=== PATIENT | female | born 1985 | race Caucasian/White ===

== ENCOUNTER 2021-11-24 16:09 | Inpatient (IN) | payer OTHER ==
[2021-11-24 17:28] VITALS: BMI 46.0
[2021-11-24] MEDS ORDERED: NICOTINE 10 MG CARTRIDGE (INHALER) IH PRN (18:08)
[2021-11-24] MEDS ORDERED: ACETAMINOPHEN 325 MG TABLET (FP) PO PRN (18:08)
[2021-11-24] MEDS ORDERED: MAG HYDROX/AL HYDROX/SIMETH 30 ML UNIT-DOSE CUP PO PRN (18:08)
[2021-11-24] MEDS ORDERED: MAGNESIUM CITRATE 300 ML BOTTLE PO PRN (18:08)
[2021-11-24] MEDS ORDERED: guaiFENesin 200 MG/10 ML 10 ML UNIT-DOSE CUPS PO PRN (18:08)
[2021-11-24] MEDS ORDERED: MAGNESIUM HYDROX 2400MG/30ML ORAL SUSPENSION 30 ML CUP PO PRN (18:08)
[2021-11-24] MEDS ORDERED: P-EPHED 60MG/TRIPROLIDI 2.5MG TABLET PO PRN (18:08)
[2021-11-24] MEDS ORDERED: LOPERAMIDE HCL 2 MG CAPSULE PO PRN (18:08)
[2021-11-24] MEDS: NICOTINE 7 MG/24 HOURS TOPICAL PATCH TD SCH (19:21)
[2021-11-24] MEDS: hydrOXYzine PAMOATE 25 MG CAPSULE (FP) PO SCH (21:10)
[2021-11-24] MEDS: THIAMINE HCL 100 MG TABLET (FP) PO SCH (21:10)
[2021-11-24] MEDS: BUPRENORPHINE/NALOXONE 8 MG/2 MG FILM PACKET SL SCH (21:11)
[2021-11-24] MEDS ORDERED: MELATONIN 5 MG TABLETS PO SCH (22:00)
[2021-11-25] MEDS: hydrOXYzine PAMOATE 25 MG CAPSULE (FP) PO SCH ×5 (06:20→21:19)
[2021-11-25] MEDS: BUPRENORPHINE/NALOXONE 8 MG/2 MG FILM PACKET SL SCH ×2 (09:38→21:19)
[2021-11-25] MEDS: PRENATAL VITAMINS W/ FOLIC ACID TABLET (FP) PO SCH (09:39)
[2021-11-25] MEDS: NICOTINE 7 MG/24 HOURS TOPICAL PATCH TD SCH (09:39)
[2021-11-25 10:19] LABS: HEMATOCRIT 43.3 % (32.4-45.2); HEMOGLOBIN 13.7 GM/dL (10.7-15.3); MCH 24.6 pg (25.7-33.7); MCHC 31.5 g/dl (32.0-36.0); MEAN PLT VOLUME 8.9 fl (7.5-11.1); PLATELET COUNT 320 10^3/uL (134-434); RBC 5.55 M/mm3 (3.60-5.2); RDW 15.4 % (11.6-15.6); WHITE BLOOD COUNT 5.6 K/mm3 (4.0-10.0)
[2021-11-25 10:24] LABS: URINE APPEARANCE CLEAR; URINE BILIRUBIN NEGATIVE (NEGATIVE); URINE COLOR YELLOW; URINE GLUCOSE (UA) NEGATIVE (NEGATIVE); URINE KETONE NEGATIVE (NEGATIVE); URINE LEUK ESTERASE NEGATIVE (NEGATIVE); URINE NITRITE NEGATIVE (NEGATIVE); URINE PROTEIN NEGATIVE (NEGATIVE); URINE UROBILINOGEN 0.2 mg/dL (0.2-1.0)
[2021-11-25 10:27] LABS: ALBUMIN 3.3 g/dl (3.4-5.0); BLOOD UREA NITROGEN 11.8 mg/dL (7-18); CREATININE 0.6 mg/dL (0.55-1.3)
[2021-11-25 10:28] LABS: BILIRUBIN,TOTAL 0.4 mg/dL (0.2-1); CALCIUM 9.2 mg/dL (8.5-10.1); TOT PROT 7.4 g/dl (6.4-8.2)
[2021-11-25] MEDS ORDERED: BISACODYL 5 MG TABLET.DR (FP) PO ONE (11:00)
[2021-11-25] MEDS ORDERED: NICOTINE POLACRILEX 2 MG GUM BUC PRN (11:10)
[2021-11-25] MEDS ORDERED: GABAPENTIN 400 MG CAPSULE PO ONE (11:24)
[2021-11-25] MEDS: FLUoxetine HCL 20 MG CAPSULE PO SCH (11:36)
[2021-11-25] MEDS: BISACODYL 5 MG TABLET.DR (FP) PO PRN (11:36)
[2021-11-25] MEDS ORDERED: FLU VACC QS2021-22(6MOS UP)/PF 60 MCG/0.5 ML SYRINGE IM ONE (12:00)
[2021-11-25] MEDS: GABAPENTIN 400 MG CAPSULE PO SCH ×2 (13:29→21:18)
[2021-11-25] MEDS ORDERED: DOCUSATE SODIUM 100 MG CAPSULE (FP) PO SCH ×2 (14:00→22:00)
[2021-11-25] MEDS: NICOTINE POLACRILEX 2 MG GUM BUC PRN (19:40)
[2021-11-25] MEDS: QUEtiapine FUMARATE 50 MG TABLET PO SCH (21:18)
[2021-11-25] MEDS: THIAMINE HCL 100 MG TABLET (FP) PO SCH (21:19)
[2021-11-26] MEDS: GABAPENTIN 400 MG CAPSULE PO SCH ×3 (06:23→21:01)
[2021-11-26] MEDS: hydrOXYzine PAMOATE 25 MG CAPSULE (FP) PO SCH ×5 (06:23→21:01)
[2021-11-26] MEDS: PRENATAL VITAMINS W/ FOLIC ACID TABLET (FP) PO SCH (09:49)
[2021-11-26] MEDS: BUPRENORPHINE/NALOXONE 8 MG/2 MG FILM PACKET SL SCH ×2 (09:49→21:02)
[2021-11-26] MEDS: FLUoxetine HCL 20 MG CAPSULE PO SCH (09:49)
[2021-11-26] MEDS: BISACODYL 5 MG TABLET.DR (FP) PO PRN (13:55)
[2021-11-26] MEDS: NICOTINE POLACRILEX 2 MG GUM BUC PRN (13:56)
[2021-11-26] MEDS: COLLOIDAL OATMEAL 1 BAR EACH TP PRN (19:45)
[2021-11-26] MEDS: MINERAL OIL/PETROLAT/WATER TOPICAL CREAM 113 GM JAR TP PRN (19:46)
[2021-11-26] MEDS: QUEtiapine FUMARATE 50 MG TABLET PO SCH (21:01)
[2021-11-26] MEDS: THIAMINE HCL 100 MG TABLET (FP) PO SCH (21:01)
[2021-11-27] MEDS: GABAPENTIN 400 MG CAPSULE PO SCH ×3 (06:00→22:02)
[2021-11-27] MEDS: hydrOXYzine PAMOATE 25 MG CAPSULE (FP) PO SCH ×5 (06:00→22:02)
[2021-11-27] MEDS: BUPRENORPHINE/NALOXONE 8 MG/2 MG FILM PACKET SL SCH ×2 (09:59→22:05)
[2021-11-27] MEDS: PRENATAL VITAMINS W/ FOLIC ACID TABLET (FP) PO SCH (10:01)
[2021-11-27] MEDS: FLUoxetine HCL 20 MG CAPSULE PO SCH (10:01)
[2021-11-27] MEDS: NICOTINE 10 MG CARTRIDGE (INHALER) IH PRN (17:32)
[2021-11-27] MEDS: MINERAL OIL/PETROLAT/WATER TOPICAL CREAM 113 GM JAR TP PRN (19:20)
[2021-11-27] MEDS: THIAMINE HCL 100 MG TABLET (FP) PO SCH (22:02)
[2021-11-27] MEDS: QUEtiapine FUMARATE 50 MG TABLET PO SCH (22:02)
[2021-11-27] MEDS: SENNOSIDES 8.6MG TABLET (FP) PO PRN (22:02)
[2021-11-28] MEDS: GABAPENTIN 400 MG CAPSULE PO SCH ×3 (06:09→21:55)
[2021-11-28] MEDS: hydrOXYzine PAMOATE 25 MG CAPSULE (FP) PO SCH ×5 (06:10→21:56)
[2021-11-28] MEDS: NICOTINE 10 MG CARTRIDGE (INHALER) IH PRN (07:50)
[2021-11-28] MEDS: PRENATAL VITAMINS W/ FOLIC ACID TABLET (FP) PO SCH (10:20)
[2021-11-28] MEDS: FLUoxetine HCL 20 MG CAPSULE PO SCH (10:20)
[2021-11-28] MEDS: MINERAL OIL/PETROLAT/WATER TOPICAL CREAM 113 GM JAR TP PRN (10:20)
[2021-11-28] MEDS: BUPRENORPHINE/NALOXONE 8 MG/2 MG FILM PACKET SL SCH ×2 (10:20→21:59)
[2021-11-28] MEDS: IBUPROFEN 400 MG TABLET (FP) PO PRN (10:21)
[2021-11-28] MEDS: COLLOIDAL OATMEAL 1 BAR EACH TP PRN (19:57)
[2021-11-28] MEDS: QUEtiapine FUMARATE 50 MG TABLET PO SCH (21:55)
[2021-11-28] MEDS: THIAMINE HCL 100 MG TABLET (FP) PO SCH (21:55)
[2021-11-28] MEDS: BISACODYL 5 MG TABLET.DR (FP) PO PRN (21:57)
[2021-11-28] MEDS: SENNOSIDES 8.6MG TABLET (FP) PO PRN (21:57)
[2021-11-29] MEDS: GABAPENTIN 400 MG CAPSULE PO SCH (07:01)
[2021-11-29] MEDS: hydrOXYzine PAMOATE 25 MG CAPSULE (FP) PO SCH ×2 (07:01→09:58)
[2021-11-29 08:33] VITALS: BP 121/75; PULSE 66; TEMP 98.1
[2021-11-29] MEDS: SENNOSIDES 8.6MG TABLET (FP) PO PRN (09:58)
[2021-11-29] MEDS: BISACODYL 5 MG TABLET.DR (FP) PO PRN (09:58)
[2021-11-29] MEDS: FLUoxetine HCL 20 MG CAPSULE PO SCH (09:58)
[2021-11-29] MEDS: PRENATAL VITAMINS W/ FOLIC ACID TABLET (FP) PO SCH (09:58)
[2021-11-29] MEDS: BUPRENORPHINE/NALOXONE 8 MG/2 MG FILM PACKET SL SCH (10:01)
[2021-11-29] MEDS: IBUPROFEN 400 MG TABLET (FP) PO PRN (12:45)
== END 2021-11-29 14:05 | disposition home or self-care (01) | DRG 772 ==
LOC: YASAS 16:09 → Y3W 17:39 → Y5N 11-27 16:13
PROVIDERS: ADMIT Allergy & Immunology; ATTEND Allergy & Immunology
PROC: HZ42ZZZ Group Counseling for Substance Abuse Treatment, Cognitive-Behavioral (ICD-10-PCS; principal; 2021-11-24)
DX: F11.20 Opioid dependence, uncomplicated (principal); F14.20 Cocaine dependence, uncomplicated; F13.20 Sedative, hypnotic or anxiolytic dependence, uncomplicated; F17.210 Nicotine dependence, cigarettes, uncomplicated; F33.1 Major depressive disorder, recurrent, moderate; F19.280 Other psychoactive substance dependence with psychoactive substance-induced anxiety disorder; F19.282 Other psychoactive substance dependence with psychoactive substance-induced sleep disorder; F41.9 Anxiety disorder, unspecified; F90.9 Attention-deficit hyperactivity disorder, unspecified type; K59.03 Drug induced constipation; Z62.810 Personal history of physical and sexual abuse in childhood; E66.01 Morbid (severe) obesity due to excess calories; Z68.42 Body mass index [BMI] 45.0-49.9, adult; Z91.410 Personal history of adult physical and sexual abuse; Z56.0 Unemployment, unspecified
CPT/HCPCS: 36415; 71046-TC-FY; 80053; 81003; 81025; 85027; 86780; 86803; 87522; 90686; C9803; G0008; U0003; U0005

== ENCOUNTER 2022-12-23 11:44 | Inpatient (IN) | payer OTHER ==
[2022-12-23 12:48] VITALS: BMI 43.9
[2022-12-23] MEDS ORDERED: MAGNESIUM HYDROX 2400MG/30ML ORAL SUSPENSION 30 ML CUP PO PRN (14:05)
[2022-12-23] MEDS ORDERED: ONDANSETRON *ODT* 4 MG TABLET SL PRN (14:05)
[2022-12-23] MEDS ORDERED: DICYCLOMINE HCL 10 MG CAPSULE PO PRN (14:05)
[2022-12-23] MEDS ORDERED: NICOTINE POLACRILEX 4 MG GUM BUC PRN (14:05)
[2022-12-23] MEDS ORDERED: LOPERAMIDE HCL 2 MG CAPSULE PO PRN (14:05)
[2022-12-23] MEDS ORDERED: NALOXONE HCL (KLOXXADO) 8 MG SPRAY NS PRN (14:05)
[2022-12-23] MEDS ORDERED: BENZOCAINE/MENTHOL (CHLORASEPTIC ) LOZENGE MM PRN (14:05)
[2022-12-23] MEDS ORDERED: NICOTINE 10 MG CARTRIDGE (INHALER) IH PRN (14:05)
[2022-12-23] MEDS ORDERED: POLYETHYLENE GLYCOL (HEALTHYLAX) 3350 17 GM PACKET PO PRN (14:05)
[2022-12-23] MEDS ORDERED: ACETAMINOPHEN 325 MG TABLET (FP) PO PRN (14:05)
[2022-12-23] MEDS ORDERED: IBUPROFEN 400 MG TABLET (FP) PO PRN (14:05)
[2022-12-23] MEDS ORDERED: MAG HYDROX/AL HYDROX/SIMETH 30 ML UNIT-DOSE CUP PO PRN (14:05)
[2022-12-23] MEDS ORDERED: hydrOXYzine PAMOATE 25 MG CAPSULE (FP) PO PRN (14:05)
[2022-12-23] MEDS ORDERED: BISMUTH SUBSALICYLATE 524 MG/30 ML PO PRN (14:05)
[2022-12-23] MEDS ORDERED: ALBUTEROL SO4 HFA INHALER IH PRN (14:16)
[2022-12-23] MEDS ORDERED: methaDONE HCL 10 MG TABLET (FOR DETOX USE ONLY) PO ONE (15:00)
[2022-12-23] MEDS ORDERED: methaDONE HCL 10 MG TABLET (FOR DETOX USE ONLY) ONE (15:42)
[2022-12-23] MEDS: diazePAM 5 MG TABLET PO SCH ×2 (17:01→23:05)
[2022-12-23] MEDS: diazePAM 5 MG TABLET PO PRN (20:25)
[2022-12-23] MEDS: IBUPROFEN 600 MG TABLET (FP) PO PRN (20:27)
[2022-12-23] MEDS: MELATONIN 5 MG TABLETS PO SCH (22:49)
[2022-12-23] MEDS: THIAMINE HCL 100 MG TABLET (FP) PO SCH (22:49)
[2022-12-23] MEDS: METHOCARBAMOL 500 MG TABLET PO PRN (22:52)
[2022-12-23] MEDS: cloNIDine HCL 0.1 MG TABLET PO PRN (22:52)
[2022-12-24] MEDS: diazePAM 5 MG TABLET PO PRN ×4 (02:48→21:29)
[2022-12-24] MEDS: diazePAM 5 MG TABLET PO SCH ×4 (06:39→22:32)
[2022-12-24] MEDS: IBUPROFEN 600 MG TABLET (FP) PO PRN ×2 (07:40→15:58)
[2022-12-24] MEDS: PRENATAL VITAMINS W/ FOLIC ACID TABLET (FP) PO SCH (10:32)
[2022-12-24] MEDS: NICOTINE 21 MG/24 HOURS TOPICAL PATCH TD SCH (10:34)
[2022-12-24] MEDS: METHOCARBAMOL 500 MG TABLET PO PRN ×2 (10:36→21:29)
[2022-12-24] MEDS: ACETAMINOPHEN 325 MG TABLET (FP) PO PRN ×2 (10:36→21:30)
[2022-12-24 10:49] LABS: HEMATOCRIT 36.6 % (32.4-45.2); HEMOGLOBIN 12.1 GM/dL (10.7-15.3); MCH 26.9 pg (25.7-33.7); MCHC 33.2 g/dl (32.0-36.0); MEAN PLT VOLUME 9.1 fl (7.5-11.1); PLATELET COUNT 308 10^3/uL (134-434); RBC 4.51 M/mm3 (3.60-5.2); RDW 14.1 % (11.6-15.6); WHITE BLOOD COUNT 9.7 K/mm3 (4.0-10.0)
[2022-12-24 10:53] LABS: CALCIUM 8.4 mg/dL (8.5-10.1)
[2022-12-24 10:57] LABS: CREATININE 0.4 mg/dL (0.55-1.3)
[2022-12-24 10:59] LABS: BILIRUBIN,TOTAL 0.2 mg/dL (0.2-1); TOT PROT 6.8 g/dl (6.4-8.2)
[2022-12-24] MEDS: cloNIDine HCL 0.1 MG TABLET PO PRN (17:36)
[2022-12-24] MEDS: THIAMINE HCL 100 MG TABLET (FP) PO SCH (21:31)
[2022-12-24] MEDS: MELATONIN 5 MG TABLETS PO SCH (21:32)
[2022-12-25] MEDS: diazePAM 5 MG TABLET PO PRN ×2 (02:59→08:50)
[2022-12-25] MEDS: ACETAMINOPHEN 325 MG TABLET (FP) PO PRN ×3 (03:30→14:02)
[2022-12-25] MEDS: diazePAM 5 MG TABLET PO SCH ×2 (05:10→13:14)
[2022-12-25] MEDS: cloNIDine HCL 0.1 MG TABLET PO PRN (05:11)
[2022-12-25] MEDS: METHOCARBAMOL 500 MG TABLET PO PRN ×2 (05:12→13:13)
[2022-12-25] MEDS: IBUPROFEN 600 MG TABLET (FP) PO PRN (05:12)
[2022-12-25 09:06] VITALS: BP 149/89; PULSE 76; RESP 18; TEMP 98
[2022-12-25] MEDS ORDERED: methaDONE HCL 10 MG TABLET (FOR DETOX USE ONLY) PO ONE (10:00)
[2022-12-25] MEDS: PRENATAL VITAMINS W/ FOLIC ACID TABLET (FP) PO SCH (10:21)
[2022-12-25] MEDS: NICOTINE 21 MG/24 HOURS TOPICAL PATCH TD SCH (10:21)
[2022-12-26] MEDS ORDERED: diazePAM 5 MG TABLET PO SCH (06:00)
[2022-12-27] MEDS ORDERED: diazePAM 5 MG TABLET PO ONE (06:00)
[2022-12-27] MEDS ORDERED: methaDONE HCL 10 MG TABLET (FOR DETOX USE ONLY) PO ONE (10:00)
== END 2022-12-25 14:17 | disposition left against medical advice (07) | DRG 770 ==
LOC: YASAS 11:44 → Y3N 14:30
PROVIDERS: ADMIT Allergy & Immunology; ATTEND Surgery
PROC: HZ2ZZZZ Detoxification Services for Substance Abuse Treatment (ICD-10-PCS; principal; 2022-12-23)
DX: F11.23 Opioid dependence with withdrawal (principal); F13.230 Sedative, hypnotic or anxiolytic dependence with withdrawal, uncomplicated; F17.210 Nicotine dependence, cigarettes, uncomplicated; F42.4 Excoriation (skin-picking) disorder; J45.909 Unspecified asthma, uncomplicated; R76.11 Nonspecific reaction to tuberculin skin test without active tuberculosis; E66.01 Morbid (severe) obesity due to excess calories; Z68.41 Body mass index [BMI] 40.0-44.9, adult
CPT/HCPCS: 36415; 80053; 81025; 85027; 86780; C9803-CS; U0003; U0005

== ENCOUNTER 2023-03-16 10:46 | Inpatient (IN) | payer OTHER ==
[2023-03-16 11:24] VITALS: BMI 38.7
[2023-03-16] MEDS ORDERED: MAG HYDROX/AL HYDROX/SIMETH 30 ML UNIT-DOSE CUP PO PRN (16:22)
[2023-03-16] MEDS ORDERED: BENZOCAINE/MENTHOL (CHLORASEPTIC ) LOZENGE MM PRN (16:22)
[2023-03-16] MEDS ORDERED: ACETAMINOPHEN 325 MG TABLET (FP) PO PRN (16:22)
[2023-03-16] MEDS ORDERED: BISMUTH SUBSALICYLATE 524 MG/30 ML PO PRN (16:22)
[2023-03-16] MEDS ORDERED: NALOXONE HCL (KLOXXADO) 8 MG SPRAY NS PRN (16:22)
[2023-03-16] MEDS ORDERED: POLYETHYLENE GLYCOL (HEALTHYLAX) 3350 17 GM PACKET PO PRN (16:22)
[2023-03-16] MEDS ORDERED: methaDONE HCL 10 MG TABLET (FOR DETOX USE ONLY) PO ONE (16:22)
[2023-03-16] MEDS ORDERED: IBUPROFEN 400 MG TABLET (FP) PO PRN (16:22)
[2023-03-16] MEDS ORDERED: LOPERAMIDE HCL 2 MG CAPSULE PO PRN (16:22)
[2023-03-16] MEDS ORDERED: NICOTINE 10 MG CARTRIDGE (INHALER) IH PRN (16:22)
[2023-03-16] MEDS ORDERED: MAGNESIUM HYDROX 2400MG/30ML ORAL SUSPENSION 30 ML CUP PO PRN (16:22)
[2023-03-16] MEDS ORDERED: BENZONATATE 200 MG CAPSULE PO PRN (16:22)
[2023-03-16] MEDS ORDERED: guaiFENesin 600 MG TABLET.ER (FP) PO PRN (16:22)
[2023-03-16] MEDS ORDERED: NALOXONE HCL 0.4 MG/ML VIAL IM PRN (16:22)
[2023-03-16] MEDS ORDERED: DICYCLOMINE HCL 10 MG CAPSULE PO PRN (16:22)
[2023-03-16] MEDS ORDERED: IBUPROFEN 600 MG TABLET (FP) PO PRN (16:22)
[2023-03-16] MEDS ORDERED: NICOTINE POLACRILEX 2 MG GUM BUC PRN (16:31)
[2023-03-16] MEDS ORDERED: methaDONE HCL 10 MG TABLET (FOR DETOX USE ONLY) ONE (16:53)
[2023-03-16] MEDS: diazePAM 5 MG TABLET PO SCH ×2 (17:29→22:14)
[2023-03-16] MEDS: MELATONIN 5 MG TABLETS PO SCH (22:14)
[2023-03-16] MEDS: THIAMINE HCL 100 MG TABLET (FP) PO SCH (22:14)
[2023-03-16] MEDS: cloNIDine HCL 0.1 MG TABLET PO PRN (22:16)
[2023-03-16] MEDS: METHOCARBAMOL 500 MG TABLET PO PRN (22:16)
[2023-03-17] MEDS: diazePAM 5 MG TABLET PO SCH ×4 (05:27→22:36)
[2023-03-17] MEDS: cloNIDine HCL 0.1 MG TABLET PO PRN (05:29)
[2023-03-17] MEDS: METHOCARBAMOL 500 MG TABLET PO PRN ×2 (05:29→22:36)
[2023-03-17] MEDS: PRENATAL VITAMINS W/ FOLIC ACID TABLET (FP) PO SCH (10:16)
[2023-03-17 11:04] LABS: HEMATOCRIT 35.5 % (32.4-45.2); MCH 26.6 pg (25.7-33.7); MCHC 33.7 g/dl (32.0-36.0); MEAN CELL VOLUME 79.1 fl (80-96); MEAN PLT VOLUME 8.9 fl (7.5-11.1); PLATELET COUNT 273 10^3/uL (134-434); RBC 4.49 M/mm3 (3.60-5.2); RDW 15.1 % (11.6-15.6)
[2023-03-17 11:07] LABS: POTASSIUM 4.3 mmol/L (3.5-5.1)
[2023-03-17 11:14] LABS: CALCIUM 8.7 mg/dL (8.5-10.1)
[2023-03-17 11:15] LABS: BLOOD UREA NITROGEN 15.8 mg/dL (7-18)
[2023-03-17 11:18] LABS: CREATININE 0.4 mg/dL (0.55-1.3)
[2023-03-17 11:19] LABS: BILIRUBIN,TOTAL 0.7 mg/dL (0.2-1); TOT PROT 6.6 g/dl (6.4-8.2)
[2023-03-17] MEDS: diazePAM 5 MG TABLET PO PRN (20:10)
[2023-03-17] MEDS: THIAMINE HCL 100 MG TABLET (FP) PO SCH (22:35)
[2023-03-17] MEDS: MELATONIN 5 MG TABLETS PO SCH (22:35)
[2023-03-18] MEDS: diazePAM 5 MG TABLET PO SCH ×3 (05:24→22:17)
[2023-03-18] MEDS: METHOCARBAMOL 500 MG TABLET PO PRN ×2 (09:30→17:35)
[2023-03-18] MEDS: PRENATAL VITAMINS W/ FOLIC ACID TABLET (FP) PO SCH (09:30)
[2023-03-18] MEDS: diazePAM 5 MG TABLET PO PRN ×2 (09:31→17:35)
[2023-03-18] MEDS ORDERED: methaDONE HCL 10 MG TABLET (FOR DETOX USE ONLY) PO ONE (10:00)
[2023-03-18] MEDS: cloNIDine HCL 0.1 MG TABLET PO PRN (14:02)
[2023-03-18] MEDS: MELATONIN 5 MG TABLETS PO SCH (22:17)
[2023-03-18] MEDS: THIAMINE HCL 100 MG TABLET (FP) PO SCH (22:17)
[2023-03-19] MEDS ORDERED: diazePAM 5 MG TABLET PO SCH (06:00)
[2023-03-19] MEDS: PRENATAL VITAMINS W/ FOLIC ACID TABLET (FP) PO SCH (09:05)
[2023-03-19] MEDS: diazePAM 5 MG TABLET PO PRN ×2 (09:06→13:35)
[2023-03-19 14:33] VITALS: BP 133/85; PULSE 78; RESP 16; TEMP 98.1
[2023-03-20] MEDS ORDERED: diazePAM 5 MG TABLET PO ONE (06:00)
[2023-03-20] MEDS ORDERED: methaDONE HCL 10 MG TABLET (FOR DETOX USE ONLY) PO ONE (10:00)
== END 2023-03-19 14:32 | disposition left against medical advice (07) | DRG 770 ==
LOC: YASAS 10:46 → Y3N 16:55
PROVIDERS: ADMIT Allergy & Immunology; ATTEND Surgery
PROC: HZ2ZZZZ Detoxification Services for Substance Abuse Treatment (ICD-10-PCS; principal; 2023-03-16)
DX: F11.23 Opioid dependence with withdrawal (principal); F10.230 Alcohol dependence with withdrawal, uncomplicated; F13.230 Sedative, hypnotic or anxiolytic dependence with withdrawal, uncomplicated; F14.10 Cocaine abuse, uncomplicated; F12.20 Cannabis dependence, uncomplicated; F17.210 Nicotine dependence, cigarettes, uncomplicated; F33.1 Major depressive disorder, recurrent, moderate; B18.2 Chronic viral hepatitis C; E66.01 Morbid (severe) obesity due to excess calories; Z68.41 Body mass index [BMI] 40.0-44.9, adult; Z86.69 Personal history of other diseases of the nervous system and sense organs
CPT/HCPCS: 36415; 80053; 81025; 85027; 86780; 87811; C9803-CS; U0003; U0005

== ENCOUNTER 2024-09-10 13:16 | Inpatient (IN) | payer BC ==
[2024-09-10 14:27] VITALS: BMI 34.0
[2024-09-10] MEDS ORDERED: ACETAMINOPHEN 325 MG TABLET (FP) PO PRN (14:44)
[2024-09-10] MEDS ORDERED: BISMUTH SUBSALICYLATE 262 MG/15 ML BTL PO PRN (14:44)
[2024-09-10] MEDS ORDERED: NALOXONE (NARCAN) HCL 4 MG/0.1 ML SPRAY NS PRN (14:44)
[2024-09-10] MEDS ORDERED: DICYCLOMINE HCL 10 MG CAPSULE PO PRN (14:44)
[2024-09-10] MEDS ORDERED: MAGNESIUM HYDROX 2400MG/30ML ORAL SUSPENSION 30 ML CUP PO PRN (14:44)
[2024-09-10] MEDS ORDERED: POLYETHYLENE GLYCOL (HEALTHYLAX) 3350 17 GM PACKET PO PRN (14:44)
[2024-09-10] MEDS ORDERED: IBUPROFEN 400 MG TABLET (FP) PO PRN (14:44)
[2024-09-10] MEDS ORDERED: BENZONATATE 200 MG CAPSULE PO PRN (14:44)
[2024-09-10] MEDS ORDERED: guaiFENesin 600 MG TABLET.ER (FP) PO PRN (14:44)
[2024-09-10] MEDS ORDERED: MAG HYDROX/AL HYDROX/SIMETH 30 ML UNIT-DOSE CUP PO PRN (14:44)
[2024-09-10] MEDS ORDERED: IBUPROFEN 600 MG TABLET (FP) PO PRN (14:44)
[2024-09-10] MEDS ORDERED: LOPERAMIDE HCL 2 MG CAPSULE PO PRN (14:44)
[2024-09-10] MEDS ORDERED: BENZOCAINE/MENTHOL (CHLORASEPTIC ) LOZENGE MM PRN (14:44)
[2024-09-10] MEDS: PRENATAL VITAMINS W/ FOLIC ACID TABLET (FP) PO SCH (15:39)
[2024-09-10] MEDS: methaDONE HCL 10 MG TABLET PO ONE (15:39)
[2024-09-10] MEDS: NICOTINE 14 MG/24 HOURS TOPICAL PATCH TD SCH (15:42)
[2024-09-10] MEDS: diazePAM 5 MG TABLET PO PRN (17:57)
[2024-09-10] MEDS: methaDONE HCL 10 MG TABLET PO PRN (17:58)
[2024-09-10] MEDS: cloNIDine HCL 0.1 MG TABLET PO SCH (17:58)
[2024-09-10] MEDS: THIAMINE 100 MG TABLET PO SCH (22:31)
[2024-09-10] MEDS: MELATONIN 5 MG TABLETS PO SCH (22:31)
[2024-09-10] MEDS: diazePAM 5 MG TABLET PO SCH (22:32)
[2024-09-11] MEDS: methaDONE 40 MG, methaDONE 10 MG PO ONE (10:45)
[2024-09-11 11:16] LABS: HEMATOCRIT 41.3 % (32.4-45.2); HEMOGLOBIN 13.5 GM/dL (10.7-15.3); MCH 26.1 pg (25.7-33.7); MCHC 32.6 g/dl (32.0-36.0); MEAN CELL VOLUME 80.2 fl (80-96); MEAN PLT VOLUME 9.1 fl (7.5-11.1); PLATELET COUNT 250 10^3/uL (134-434); RBC 5.16 M/mm3 (3.60-5.2); RDW 14.3 % (11.6-15.6); WHITE BLOOD COUNT 5.9 K/mm3 (4.0-10.0)
[2024-09-11 11:50] LABS: POTASSIUM 3.6 mmol/L (3.5-5.1)
[2024-09-11 12:07] LABS: ALBUMIN 3.3 g/dl (3.4-5.0)
[2024-09-11 12:10] LABS: CREATININE 0.4 mg/dL (0.55-1.3)
[2024-09-11 12:12] LABS: BILIRUBIN,TOTAL 0.4 mg/dL (0.2-1)
[2024-09-11 12:14] LABS: TOT PROT 7.1 g/dl (6.4-8.2)
[2024-09-12] MEDS ORDERED: cloNIDine HCL 0.1 MG TABLET PO PRN
[2024-09-12] MEDS: diazePAM 5 MG TABLET PO SCH (05:33)
[2024-09-12] MEDS: methaDONE 40 MG, methaDONE 20 MG PO ONE (09:19)
[2024-09-12] MEDS: METHOCARBAMOL 500 MG TABLET PO PRN (21:19)
[2024-09-13] MEDS: diazePAM 5 MG TABLET PO SCH (05:49)
[2024-09-13] MEDS: hydrOXYzine PAMOATE 25 MG CAPSULE (FP) PO PRN (08:18)
[2024-09-13] MEDS: ONDANSETRON *ODT* 4 MG TABLET SL PRN (08:18)
[2024-09-13] MEDS: methaDONE 40 MG, methaDONE 30 MG PO ONE (09:22)
[2024-09-14] MEDS: diazePAM 5 MG TABLET PO ONE (05:59)
[2024-09-14] MEDS: methaDONE HCL 40 MG DISPERSABLE TABLET PO ONE (09:21)
[2024-09-14 10:17] VITALS: BP 107/61; PULSE 86; RESP 18; TEMP 97.6
[2024-09-14] MEDS: NALOXONE (NYS OPIOID OVERDOSE PROGRAM) 4 MG/0.1 ML SPRAY NS PRN (13:36)
[2024-09-15] MEDS ORDERED: methaDONE 80 MG, methaDONE 10 MG PO ONE (10:00)
== END 2024-09-14 12:26 | disposition home or self-care (01) | DRG 773 ==
LOC: YASAS 13:16 → Y6N 15:09
PROVIDERS: ADMIT Allergy & Immunology; ATTEND Surgery
PROC: HZ2ZZZZ Detoxification Services for Substance Abuse Treatment (ICD-10-PCS; principal; 2024-09-10)
DX: F11.23 Opioid dependence with withdrawal (principal); F10.230 Alcohol dependence with withdrawal, uncomplicated; F14.20 Cocaine dependence, uncomplicated; F17.210 Nicotine dependence, cigarettes, uncomplicated; F33.1 Major depressive disorder, recurrent, moderate; F41.9 Anxiety disorder, unspecified; F90.9 Attention-deficit hyperactivity disorder, unspecified type; G47.00 Insomnia, unspecified; J45.909 Unspecified asthma, uncomplicated; Z86.11 Personal history of tuberculosis; Z86.69 Personal history of other diseases of the nervous system and sense organs
CPT/HCPCS: 36415; 80053; 80305; 80307; 81025; 85027; 86780; 93005; 93010; Q0162

== ENCOUNTER 2024-10-25 18:00 | Inpatient (IN) | payer BC ==
[2024-10-25 18:26] VITALS: BMI 35.9
[2024-10-25] MEDS ORDERED: methaDONE HCL 10 MG TABLET (FOR DETOX USE ONLY) PO PRN (18:36)
[2024-10-25] MEDS ORDERED: ONDANSETRON *ODT* 4 MG TABLET SL PRN (18:38)
[2024-10-25] MEDS ORDERED: BENZOCAINE/MENTHOL (CHLORASEPTIC ) LOZENGE MM PRN (18:38)
[2024-10-25] MEDS ORDERED: BENZONATATE 200 MG CAPSULE PO PRN (18:38)
[2024-10-25] MEDS ORDERED: MAG HYDROX/AL HYDROX/SIMETH 30 ML UNIT-DOSE CUP PO PRN (18:38)
[2024-10-25] MEDS ORDERED: NALOXONE (NARCAN) HCL 4 MG/0.1 ML SPRAY NS PRN (18:38)
[2024-10-25] MEDS ORDERED: BISMUTH SUBSALICYLATE 524 MG/30 ML PO PRN (18:38)
[2024-10-25] MEDS ORDERED: guaiFENesin 600 MG TABLET.ER (FP) PO PRN (18:38)
[2024-10-25] MEDS ORDERED: POLYETHYLENE GLYCOL (HEALTHYLAX) 3350 17 GM PACKET PO PRN (18:38)
[2024-10-25] MEDS ORDERED: ACETAMINOPHEN 325 MG TABLET (FP) PO PRN (18:38)
[2024-10-25] MEDS ORDERED: NICOTINE POLACRILEX 2 MG LOZENGE BC PRN (18:38)
[2024-10-25] MEDS ORDERED: P-EPHED 60MG/TRIPROLIDI 2.5MG TABLET PO PRN (18:38)
[2024-10-25] MEDS ORDERED: DICYCLOMINE HCL 10 MG CAPSULE PO PRN (18:38)
[2024-10-25] MEDS ORDERED: IBUPROFEN 400 MG TABLET (FP) PO PRN (18:38)
[2024-10-25] MEDS ORDERED: LOPERAMIDE HCL 2 MG CAPSULE PO PRN (18:38)
[2024-10-25] MEDS ORDERED: MAGNESIUM HYDROX 2400MG/30ML ORAL SUSPENSION 30 ML CUP PO PRN (18:38)
[2024-10-25] MEDS ORDERED: diazePAM 5 MG TABLET ONE (19:58)
[2024-10-25] MEDS ORDERED: methaDONE HCL 10 MG TABLET (FOR DETOX USE ONLY) ONE (19:59)
[2024-10-25] MEDS: diazePAM 5 MG TABLET PO ONE (20:02)
[2024-10-25] MEDS: methaDONE HCL 10 MG TABLET (FOR DETOX USE ONLY) PO ONE (20:02)
[2024-10-25] MEDS: QUEtiapine FUMARATE 25 MG TABLET PO PRN (22:24)
[2024-10-25] MEDS: hydrOXYzine PAMOATE 25 MG CAPSULE (FP) PO PRN (22:24)
[2024-10-25] MEDS: METHOCARBAMOL 500 MG TABLET PO PRN (22:25)
[2024-10-25] MEDS: THIAMINE 100 MG TABLET PO SCH (22:26)
[2024-10-25] MEDS: MELATONIN 5 MG TABLETS PO SCH (22:26)
[2024-10-25] MEDS: diazePAM 5 MG TABLET PO SCH (22:27)
[2024-10-26] MEDS: NICOTINE POLACRILEX 2 MG GUM BUC PRN (08:36)
[2024-10-26] MEDS: diazePAM 5 MG TABLET PO PRN (09:32)
[2024-10-26] MEDS: PRENATAL VITAMINS W/ FOLIC ACID TABLET (FP) PO SCH (09:37)
[2024-10-26] MEDS: CIPROFLOXACIN HCL 0.3% OPHTH 2.5ML BOTTLE OS SCH (14:16)
[2024-10-26] MEDS: cloNIDine HCL 0.1 MG TABLET PO PRN (19:49)
[2024-10-26] MEDS: QUEtiapine FUMARATE 100 MG TABLET (FP) PO SCH (22:17)
[2024-10-27] MEDS: diazePAM 5 MG TABLET PO SCH (05:54)
[2024-10-27] MEDS: methaDONE 40 MG, methaDONE 10 MG PO ONE (09:54)
[2024-10-27] MEDS ORDERED: methaDONE HCL 10 MG TABLET (FOR DETOX USE ONLY) PO ONE (10:00)
[2024-10-27] MEDS ORDERED: methaDONE HCL 10 MG TABLET PO ONE (10:00)
[2024-10-28] MEDS: diazePAM 5 MG TABLET PO SCH (06:13)
[2024-10-28 09:26] VITALS: RESP 18
[2024-10-28 10:00] LABS: BASO % 0.5 % (0-2.0); EOS % 3.9 % (0-4.5); HEMATOCRIT 36.6 % (32.4-45.2); HEMOGLOBIN 12.5 GM/dL (10.7-15.3); LYMPH % 47.1 % (8-40); MCH 27.1 pg (25.7-33.7); MCHC 34.1 g/dl (32.0-36.0); MEAN CELL VOLUME 79.5 fl (80-96); MEAN PLT VOLUME 8.2 fl (7.5-11.1); MONO % 10.9 % (3.8-10.2); NEUT % 37.6 % (42.8-82.8); PLATELET COUNT 315 10^3/uL (134-434); RDW 13.9 % (11.6-15.6)
[2024-10-28 10:06] LABS: POTASSIUM 4.2 mmol/L (3.5-5.1)
[2024-10-28] MEDS: methaDONE 40 MG, methaDONE 20 MG PO ONE (10:08)
[2024-10-28 10:10] LABS: ALBUMIN 2.8 g/dl (3.4-5.0); BLOOD UREA NITROGEN 15.8 mg/dL (7-18); CALCIUM 8.7 mg/dL (8.5-10.1)
[2024-10-28 10:13] LABS: CREATININE 0.4 mg/dL (0.55-1.3)
[2024-10-28 10:15] LABS: BILIRUBIN,TOTAL 0.2 mg/dL (0.2-1); TOT PROT 6.8 g/dl (6.4-8.2)
[2024-10-28] MEDS: IBUPROFEN 600 MG TABLET (FP) PO PRN (11:49)
[2024-10-28 13:13] VITALS: BP 131/66; PULSE 88; TEMP 96.9
[2024-10-28] MEDS ORDERED: NALOXONE (NYS OPIOID OVERDOSE PROGRAM) 4 MG/0.1 ML SPRAY NS SCH (14:15)
[2024-10-29] MEDS ORDERED: diazePAM 5 MG TABLET PO ONE (06:00)
[2024-10-29] MEDS ORDERED: methaDONE HCL 10 MG TABLET (FOR DETOX USE ONLY) PO ONE (10:00)
[2024-10-29] MEDS ORDERED: methaDONE 40 MG, methaDONE 30 MG PO ONE (10:00)
[2024-10-29] MEDS ORDERED: methaDONE HCL 10 MG TABLET PO ONE (10:00)
[2024-10-30] MEDS ORDERED: methaDONE HCL 40 MG DISPERSABLE TABLET PO ONE (10:00)
[2024-10-31] MEDS ORDERED: methaDONE 80 MG, methaDONE 10 MG PO ONE (10:00)
[2024-10-31] MEDS ORDERED: methaDONE HCL 10 MG TABLET PO ONE (10:00)
== END 2024-10-28 15:05 | disposition home or self-care (01) | DRG 773 ==
LOC: YASAS 18:00 → Y6N 20:29
PROVIDERS: ADMIT Allergy & Immunology; ATTEND Surgery
PROC: HZ2ZZZZ Detoxification Services for Substance Abuse Treatment (ICD-10-PCS; principal; 2024-10-25)
DX: F11.23 Opioid dependence with withdrawal (principal); F10.230 Alcohol dependence with withdrawal, uncomplicated; F13.230 Sedative, hypnotic or anxiolytic dependence with withdrawal, uncomplicated; F14.20 Cocaine dependence, uncomplicated; F17.210 Nicotine dependence, cigarettes, uncomplicated; F19.282 Other psychoactive substance dependence with psychoactive substance-induced sleep disorder; F19.280 Other psychoactive substance dependence with psychoactive substance-induced anxiety disorder; F19.24 Other psychoactive substance dependence with psychoactive substance-induced mood disorder; H10.9 Unspecified conjunctivitis; B18.2 Chronic viral hepatitis C; R76.11 Nonspecific reaction to tuberculin skin test without active tuberculosis; J45.909 Unspecified asthma, uncomplicated; Z62.810 Personal history of physical and sexual abuse in childhood; Z91.410 Personal history of adult physical and sexual abuse; Z63.8 Other specified problems related to primary support group; Z63.0 Problems in relationship with spouse or partner
CPT/HCPCS: 36415; 80053; 80307; 85025; 86780; 93005; 93010

== ENCOUNTER 2025-01-22 06:46 | Inpatient (IN) | payer BC ==
[2025-01-22 07:00] VITALS: BMI 32.4
[2025-01-22] MEDS ORDERED: IBUPROFEN 400 MG TABLET (FP) PO PRN (07:49)
[2025-01-22] MEDS ORDERED: BENZOCAINE/MENTHOL (CHLORASEPTIC ) LOZENGE MM PRN (07:49)
[2025-01-22] MEDS ORDERED: guaiFENesin 600 MG TABLET.ER (FP) PO PRN (07:49)
[2025-01-22] MEDS ORDERED: NALOXONE (NARCAN) HCL 4 MG/0.1 ML SPRAY NS PRN (07:49)
[2025-01-22] MEDS ORDERED: IBUPROFEN 600 MG TABLET (FP) PO PRN (07:49)
[2025-01-22] MEDS ORDERED: ONDANSETRON *ODT* 4 MG TABLET SL PRN (07:49)
[2025-01-22] MEDS ORDERED: ACETAMINOPHEN 325 MG TABLET (FP) PO PRN (07:49)
[2025-01-22] MEDS ORDERED: hydrOXYzine PAMOATE 25 MG CAPSULE (FP) PO PRN (07:49)
[2025-01-22] MEDS ORDERED: MAGNESIUM HYDROX 2400MG/30ML ORAL SUSPENSION 30 ML CUP PO PRN (07:49)
[2025-01-22] MEDS ORDERED: BENZONATATE 200 MG CAPSULE PO PRN (07:49)
[2025-01-22] MEDS ORDERED: POLYETHYLENE GLYCOL (HEALTHYLAX) 3350 17 GM PACKET PO PRN (07:49)
[2025-01-22] MEDS ORDERED: BISMUTH SUBSALICYLATE 262 MG/15 ML BTL PO PRN (07:49)
[2025-01-22] MEDS ORDERED: LOPERAMIDE HCL 2 MG CAPSULE PO PRN (07:49)
[2025-01-22] MEDS ORDERED: MAG HYDROX/AL HYDROX/SIMETH 30 ML UNIT-DOSE CUP PO PRN (07:49)
[2025-01-22] MEDS ORDERED: DICYCLOMINE HCL 10 MG CAPSULE PO PRN (07:49)
[2025-01-22] MEDS ORDERED: methaDONE HCL 10 MG TABLET (FOR DETOX USE ONLY) ONE (09:54)
[2025-01-22] MEDS ORDERED: cloNIDine HCL 0.1 MG TABLET ONE (09:55)
[2025-01-22] MEDS ORDERED: NICOTINE 14 MG/24 HOURS TOPICAL PATCH TD ONE (09:55)
[2025-01-22] MEDS ORDERED: PRENATAL VITAMINS W/ FOLIC ACID TABLET (FP) PO ONE (09:55)
[2025-01-22] MEDS: methaDONE HCL 10 MG TABLET PO ONE ×2 (10:04→10:05)
[2025-01-22] MEDS: PRENATAL VITAMINS W/ FOLIC ACID TABLET (FP) PO SCH (10:05)
[2025-01-22] MEDS: cloNIDine HCL 0.1 MG TABLET PO SCH (10:05)
[2025-01-22] MEDS: NICOTINE 14 MG/24 HOURS TOPICAL PATCH TD SCH (10:05)
[2025-01-22] MEDS: diazePAM 5 MG TABLET PO SCH (11:31)
[2025-01-22] MEDS: ACAMPROSATE CALCIUM 333 MG TABLET.DR PO SCH (13:49)
[2025-01-22] MEDS: MELATONIN 5 MG TABLETS PO SCH (22:07)
[2025-01-22] MEDS: THIAMINE 100 MG TABLET PO SCH (22:07)
[2025-01-23] MEDS: METHOCARBAMOL 500 MG TABLET PO PRN (10:11)
[2025-01-23] MEDS: methaDONE 40 MG, methaDONE 10 MG PO ONE (10:11)
[2025-01-23] MEDS: CEPHALEXIN MONOHYDRATE 500 MG CAPSULE (UD) PO SCH (10:38)
[2025-01-23] MEDS: GABAPENTIN 300 MG CAPSULE PO SCH (13:16)
[2025-01-23] MEDS: MUPIROCIN CA 2% TOPICAL CREAM 15 GM TUBE TP SCH (13:18)
[2025-01-23] MEDS: diazePAM 5 MG TABLET PO PRN (13:28)
[2025-01-23] MEDS: QUEtiapine FUMARATE 50 MG TABLET PO SCH (22:11)
[2025-01-24] MEDS ORDERED: cloNIDine HCL 0.1 MG TABLET PO PRN
[2025-01-24] MEDS: diazePAM 5 MG TABLET PO SCH (06:36)
[2025-01-24] MEDS: QUEtiapine FUMARATE 100 MG TABLET (FP) PO SCH (09:32)
[2025-01-24] MEDS: methaDONE 40 MG, methaDONE 20 MG PO ONE (09:32)
[2025-01-24 12:55] VITALS: BP 111/78; PULSE 87; RESP 18; TEMP 98.9
[2025-01-25] MEDS ORDERED: diazePAM 5 MG TABLET PO SCH (06:00)
[2025-01-25] MEDS ORDERED: methaDONE 40 MG, methaDONE 30 MG PO ONE (10:00)
[2025-01-26] MEDS ORDERED: diazePAM 5 MG TABLET PO ONE (06:00)
[2025-01-26] MEDS ORDERED: methaDONE HCL 40 MG DISPERSABLE TABLET PO ONE (06:00)
[2025-01-27] MEDS ORDERED: methaDONE 80 MG, methaDONE 10 MG PO ONE (10:00)
== END 2025-01-24 03:00 | disposition home or self-care (01) | DRG 773 ==
LOC: YASAS 06:46 → Y6N 10:13
PROVIDERS: ADMIT Allergy & Immunology; ATTEND Allergy & Immunology
PROC: HZ2ZZZZ Detoxification Services for Substance Abuse Treatment (ICD-10-PCS; principal; 2025-01-22)
DX: F11.23 Opioid dependence with withdrawal (principal); F10.230 Alcohol dependence with withdrawal, uncomplicated; F13.20 Sedative, hypnotic or anxiolytic dependence, uncomplicated; F12.20 Cannabis dependence, uncomplicated; F17.210 Nicotine dependence, cigarettes, uncomplicated; F25.9 Schizoaffective disorder, unspecified; F19.282 Other psychoactive substance dependence with psychoactive substance-induced sleep disorder; F19.280 Other psychoactive substance dependence with psychoactive substance-induced anxiety disorder; F19.24 Other psychoactive substance dependence with psychoactive substance-induced mood disorder; R76.11 Nonspecific reaction to tuberculin skin test without active tuberculosis; Z62.810 Personal history of physical and sexual abuse in childhood; Z63.8 Other specified problems related to primary support group
CPT/HCPCS: 80305; 81025; 93005; 93010

== ENCOUNTER 2025-02-26 13:47 | Inpatient (IN) | payer BC ==
[2025-02-26 14:20] VITALS: BMI 31.9
[2025-02-26] MEDS ORDERED: IBUPROFEN 400 MG TABLET (FP) PO PRN (15:01)
[2025-02-26] MEDS ORDERED: MAG HYDROX/AL HYDROX/SIMETH 30 ML UNIT-DOSE CUP PO PRN (15:01)
[2025-02-26] MEDS ORDERED: ACETAMINOPHEN 325 MG TABLET (FP) PO PRN (15:01)
[2025-02-26] MEDS ORDERED: LOPERAMIDE HCL 2 MG CAPSULE PO PRN (15:01)
[2025-02-26] MEDS ORDERED: DICYCLOMINE HCL 10 MG CAPSULE PO PRN (15:01)
[2025-02-26] MEDS ORDERED: BENZOCAINE/MENTHOL (CHLORASEPTIC ) LOZENGE MM PRN (15:01)
[2025-02-26] MEDS ORDERED: BISMUTH SUBSALICYLATE 524 MG/30 ML PO PRN (15:01)
[2025-02-26] MEDS ORDERED: NALOXONE (NARCAN) HCL 4 MG/0.1 ML SPRAY NS PRN (15:01)
[2025-02-26] MEDS ORDERED: BENZONATATE 200 MG CAPSULE PO PRN (15:01)
[2025-02-26] MEDS ORDERED: ONDANSETRON *ODT* 4 MG TABLET SL PRN (15:01)
[2025-02-26] MEDS ORDERED: POLYETHYLENE GLYCOL (HEALTHYLAX) 3350 17 GM PACKET PO PRN (15:01)
[2025-02-26] MEDS ORDERED: LORazepam 1 MG TABLET PO PRN (15:01)
[2025-02-26] MEDS ORDERED: IBUPROFEN 600 MG TABLET (FP) PO PRN (15:01)
[2025-02-26] MEDS ORDERED: guaiFENesin 600 MG TABLET.ER (FP) PO PRN (15:01)
[2025-02-26] MEDS ORDERED: MAGNESIUM HYDROX 2400MG/30ML ORAL SUSPENSION 30 ML CUP PO PRN (15:01)
[2025-02-26] MEDS: diazePAM 5 MG TABLET PO PRN (18:28)
[2025-02-26] MEDS: hydrOXYzine PAMOATE 25 MG CAPSULE (FP) PO PRN (18:29)
[2025-02-26] MEDS: THIAMINE 100 MG TABLET PO SCH (22:12)
[2025-02-26] MEDS: MELATONIN 5 MG TABLETS PO SCH (22:12)
[2025-02-26] MEDS: levETIRAcetam 500 MG TABLET (FP) PO SCH (22:13)
[2025-02-26] MEDS: diazePAM 5 MG TABLET PO SCH (22:13)
[2025-02-26] MEDS: METHOCARBAMOL 500 MG TABLET PO PRN (22:14)
[2025-02-26] MEDS ORDERED: LORazepam 2 MG TABLET PO SCH (23:00)
[2025-02-27] MEDS: methaDONE HCL 10 MG TABLET PO ONE (09:10)
[2025-02-27] MEDS: PRENATAL VITAMINS W/ FOLIC ACID TABLET (FP) PO SCH (09:18)
[2025-02-27] MEDS: NICOTINE 21 MG/24 HOURS TOPICAL PATCH TD SCH (09:18)
[2025-02-27] MEDS: FLU VACCINE (FLULAVAL) PF 45 MCG/0.5 ML SYRINGE 2024-2025 IM ONE (09:19)
[2025-02-27] MEDS: QUEtiapine FUMARATE 50 MG TABLET PO SCH (22:35)
[2025-02-28] MEDS ORDERED: LORazepam 1 MG TABLET PO SCH (05:00)
[2025-02-28] MEDS: diazePAM 5 MG TABLET PO SCH (06:34)
[2025-02-28] MEDS ORDERED: methaDONE HCL 40 MG DISPERSABLE TABLET PO ONE (10:00)
[2025-03-01] MEDS ORDERED: cloNIDine HCL 0.1 MG TABLET PO PRN
[2025-03-01] MEDS ORDERED: LORazepam 0.5 MG TABLET PO PRN
[2025-03-01] MEDS ORDERED: LORazepam 0.5 MG TABLET PO SCH (05:00)
[2025-03-01] MEDS: diazePAM 5 MG TABLET PO SCH (06:15)
[2025-03-01] MEDS ORDERED: methaDONE HCL 40 MG DISPERSABLE TABLET PO ONE ×2 (10:00)
[2025-03-01] MEDS: NICOTINE POLACRILEX 2 MG GUM BUC PRN (10:36)
[2025-03-02] MEDS ORDERED: LORazepam 0.5 MG TABLET PO ONE (05:00)
[2025-03-02] MEDS: diazePAM 5 MG TABLET PO ONE (06:12)
[2025-03-02 09:22] VITALS: BP 130/75; PULSE 86; RESP 16; TEMP 96.9
[2025-03-02] MEDS ORDERED: methaDONE HCL 40 MG DISPERSABLE TABLET PO ONE ×2 (10:00)
[2025-03-02] MEDS: methaDONE 40 MG, methaDONE 10 MG PO ONE (10:31)
== END 2025-03-02 12:06 | disposition home or self-care (01) | DRG 773 ==
LOC: YASAS 13:47 → Y6N 17:37
PROVIDERS: ADMIT Allergy & Immunology; ATTEND Allergy & Immunology
PROC: HZ2ZZZZ Detoxification Services for Substance Abuse Treatment (ICD-10-PCS; principal; 2025-02-26)
DX: F11.23 Opioid dependence with withdrawal (principal); F10.230 Alcohol dependence with withdrawal, uncomplicated; F13.230 Sedative, hypnotic or anxiolytic dependence with withdrawal, uncomplicated; F14.20 Cocaine dependence, uncomplicated; F17.210 Nicotine dependence, cigarettes, uncomplicated; F25.9 Schizoaffective disorder, unspecified; F19.24 Other psychoactive substance dependence with psychoactive substance-induced mood disorder; F41.9 Anxiety disorder, unspecified; G40.909 Epilepsy, unspecified, not intractable, without status epilepticus; J45.20 Mild intermittent asthma, uncomplicated; Z62.810 Personal history of physical and sexual abuse in childhood; Z91.410 Personal history of adult physical and sexual abuse; Z63.0 Problems in relationship with spouse or partner; Z63.8 Other specified problems related to primary support group
CPT/HCPCS: 80305; 80307; 81025; 93005; 93010

== ENCOUNTER 2025-06-27 15:44 | Inpatient (IN) | payer BC ==
[2025-06-27 16:37] VITALS: BMI 36.9
[2025-06-27] MEDS ORDERED: NALOXONE (NARCAN) HCL 4 MG/0.1 ML SPRAY NS PRN (17:28)
[2025-06-27] MEDS ORDERED: guaiFENesin 600 MG TABLET.ER (FP) PO PRN (17:28)
[2025-06-27] MEDS ORDERED: IBUPROFEN 400 MG TABLET (FP) PO PRN (17:28)
[2025-06-27] MEDS ORDERED: BENZONATATE 200 MG CAPSULE PO PRN (17:28)
[2025-06-27] MEDS ORDERED: BENZOCAINE/MENTHOL (CHLORASEPTIC ) LOZENGE MM PRN (17:28)
[2025-06-27] MEDS ORDERED: MAG HYDROX/AL HYDROX/SIMETH 30 ML UNIT-DOSE CUP PO PRN (17:28)
[2025-06-27] MEDS ORDERED: BISMUTH SUBSALICYLATE 524 MG/30 ML PO PRN (17:28)
[2025-06-27] MEDS ORDERED: ONDANSETRON *ODT* 4 MG TABLET SL PRN (17:28)
[2025-06-27] MEDS ORDERED: NICOTINE POLACRILEX 2 MG LOZENGE BC PRN (17:28)
[2025-06-27] MEDS ORDERED: POLYETHYLENE GLYCOL (HEALTHYLAX) 3350 17 GM PACKET PO PRN (17:28)
[2025-06-27] MEDS ORDERED: MAGNESIUM HYDROX 2400MG/30ML ORAL SUSPENSION 30 ML CUP PO PRN (17:28)
[2025-06-27] MEDS ORDERED: LOPERAMIDE HCL 2 MG CAPSULE PO PRN (17:28)
[2025-06-27] MEDS ORDERED: DICYCLOMINE HCL 10 MG CAPSULE PO PRN (17:28)
[2025-06-27] MEDS ORDERED: P-EPHED 60MG/TRIPROLIDI 2.5MG TABLET PO PRN (17:28)
[2025-06-27] MEDS ORDERED: METHOCARBAMOL 500 MG TABLET ONE (18:54)
[2025-06-27] MEDS ORDERED: hydrOXYzine PAMOATE 25 MG CAPSULE (FP) PO ONE (18:54)
[2025-06-27] MEDS ORDERED: IBUPROFEN 600 MG TABLET (FP) PO ONE (18:54)
[2025-06-27] MEDS: IBUPROFEN 600 MG TABLET (FP) PO PRN (18:55)
[2025-06-27] MEDS: METHOCARBAMOL 500 MG TABLET PO PRN (18:56)
[2025-06-27] MEDS ORDERED: ALBUTEROL SO4 HFA INHALER IH PRN (19:52)
[2025-06-27] MEDS ORDERED: levETIRAcetam 500 MG TABLET (FP) PO SCH (22:00)
[2025-06-27] MEDS: THIAMINE 100 MG TABLET PO SCH (22:22)
[2025-06-27] MEDS: MELATONIN 5 MG TABLETS PO SCH (22:22)
[2025-06-27] MEDS: hydrOXYzine PAMOATE 25 MG CAPSULE (FP) PO PRN (22:23)
[2025-06-27] MEDS: levETIRAcetam 500 MG TABLET (FP) PO SCH (22:23)
[2025-06-28 10:29] LABS: MCHC 31.7 g/dl (32.2-35.5); MEAN CELL VOLUME 82.6 fl (79.4-94.8); MEAN PLT VOLUME 10.2 fl (9.4-12.3); RDW 12.9 % (12.1-16.8)
[2025-06-28] MEDS: PRENATAL VITAMINS W/ FOLIC ACID TABLET (FP) PO SCH (10:38)
[2025-06-28 10:57] LABS: GLUCOSE,RANDOM 93 mg/dL (74-106); TOT PROT 6.0 g/dl (6.4-8.2)
[2025-06-28 10:58] LABS: CO2 26 mmol/L (21-32)
[2025-06-28 11:00] LABS: ALK PHOS 136 U/L (40-150)
[2025-06-28 11:03] LABS: CREATININE 0.42 mg/dL (0.55-1.3); SGOT/AST 269 U/L (5-34); SGPT/ALT 380 U/L (0-55)
[2025-06-28] MEDS: QUEtiapine FUMARATE 100 MG TABLET (FP) PO SCH (22:04)
[2025-06-28] MEDS: GABAPENTIN 400 MG CAPSULE PO SCH (22:04)
[2025-06-29] MEDS: ACETAMINOPHEN 325 MG TABLET (FP) PO PRN (06:14)
[2025-06-29] MEDS: NICOTINE POLACRILEX 2 MG GUM BUC PRN (06:17)
[2025-06-29] MEDS: QUEtiapine FUMARATE 100 MG TABLET (FP) PO SCH (10:09)
[2025-07-02 17:32] VITALS: RESP 18
[2025-07-02 20:47] VITALS: BP 127/81; PULSE 81; TEMP 96.9
== END 2025-07-02 20:53 | disposition left against medical advice (07) | DRG 770 ==
LOC: YASAS 15:44 → Y3N 18:43
PROVIDERS: ADMIT Neuromusculoskeletal Medicine & OMM; ATTEND Allergy & Immunology
PROC: HZ2ZZZZ Detoxification Services for Substance Abuse Treatment (ICD-10-PCS; principal; 2025-06-27)
DX: F11.23 Opioid dependence with withdrawal (principal); F10.230 Alcohol dependence with withdrawal, uncomplicated; F13.20 Sedative, hypnotic or anxiolytic dependence, uncomplicated; F14.20 Cocaine dependence, uncomplicated; F12.20 Cannabis dependence, uncomplicated; F17.210 Nicotine dependence, cigarettes, uncomplicated; F25.9 Schizoaffective disorder, unspecified; F43.10 Post-traumatic stress disorder, unspecified; F41.9 Anxiety disorder, unspecified; G47.00 Insomnia, unspecified; J45.909 Unspecified asthma, uncomplicated; Z62.810 Personal history of physical and sexual abuse in childhood; Z91.410 Personal history of adult physical and sexual abuse; Z88.7 Allergy status to serum and vaccine
CPT/HCPCS: 36415; 80053; 80307; 85027; 86780